=== PATIENT | male | born 1995 | race Caucasian/White ===

== ENCOUNTER 2017-06-12 19:27 | Emergency (ER) | payer BC ==
[2017-06-12 19:33] VITALS: BP 142/91; TEMP 98.2
[2017-06-12] MEDS ORDERED: VYVANSE30 MG PO (19:36)
[2017-06-12 22:05] VITALS: PULSE 65
== END 2017-06-12 22:08 | disposition home or self-care (01) ==
LOC: COL.ER 19:27
DX: S06.0X9A Concussion with loss of consciousness of unspecified duration, initial encounter (principal); S61.412A Laceration without foreign body of left hand, initial encounter; F90.9 Attention-deficit hyperactivity disorder, unspecified type; Z23 Encounter for immunization; Y04.0XXA Assault by unarmed brawl or fight, initial encounter